=== PATIENT | male | born 1995 | race Caucasian/White ===

== ENCOUNTER 2021-08-23 16:06 | Emergency (ER) | payer BC, SELFPAY ==
[2021-08-23 16:08] VITALS: BP 126/83; PULSE 68; RESP 18; TEMP 36.6; O2SAT 100; BMI 27.3
--- NOTE | 2021-08-23 16:32 | [facility].EDGENADL ---
ED Disposition Clinical Impression: Encounter for medical assessment Disposition: Home, Self-Care Condition on Discharge: Good Additional Instructions: Your blood pressure here today has been normal as has your heart rate. Your EKG is normal today as well. Increase oral hydration and follow-up with your primary care to establish care and tracking of your blood pressures. If you feel the need you can take a daily journal of your blood pressures that should be checked in the morning and in the evening. If you have any severe dizziness chest pain palpitations or other worsening symptoms please return to the ER. - Critical Care Critical Care Time: No Attestation: On , the high probability of a clinically significant, sudden or life threatening deterioration of the following system(s) required my full and direct attention, intervention and personal management. The time I documented below is in addition to time spent performing reported procedures but includes the following listed in this critical care notation. Medical Decision Making - Medical Records Medical records reviewed: Yes: I reviewed the patient's medical records. - Florentino Inquiry Pt receiving controlled substance: No Vital Signs: 08/23/21 16:08 Temperature 97.8 F Temperature Source Oral Pulse Rate [Right Radial] 68 Respiratory Rate 18 Blood Pressure [Right Arm] 126/83 Blood Pressure Mean [Right Arm] 97 Blood Pressure Source [Right Arm] Automatic Cuff Blood Pressure Position [Right Arm] Sitting 02 Sat by Pulse Oximetry 100 Oxygen Delivery Method Room Air Orders (Tests/Meds): ORDERS Category Date Time Status EKG Request [ECG Request by /Ollie] Stat Y 08/23/21 16:48 Ordered General Adult HPI - General Stated complaint: Low BP Time Seen by Provider: 08/23/21 16:32 Mode of Arrival: Ambulatory Source of Information: Patient Limitations: No Limitations - History of Present Illness HPI narrative: 6-year-old male who presents because his grandparents checked his blood pressure and found it to be low. They try to troubleshoot machine but persistently read low. He was having no symptoms at that time no dizziness shortness of breath chest pain palpitations or weakness. After checking this blood pressure he drove from [place] back to [place] without issue. He does not get dizzy with standing. - Related Data Home Medications Medication Instructions Recorded Confirmed No Known Home Medications 06/08/19 06/08/19 Allergies Allergy/AdvReac Type Severity Reaction Status Date / Time Sulfa (Sulfonamide Allergy Verified 06/08/19 19:12 Antibiotics) [facility] History - Hepatitis A Screen Attestation statement:: This patient has been screened for Hepatitis A risk factors. ROS Obtained: Yes Systems reviewed as appropriate & no additional complaints Physical Exam - General General appearance: alert, in no apparent distress - Head Head exam: atraumatic, normocephalic - Eye Eye exam: Present: normal appearance - ENT ENT exam: Present: mucous membranes moist - Neck Neck exam: Present: trachea midline - Chest Chest inspection: Present: symmetric chest wall rise - Respiratory Respiratory exam: Present: normal lung sounds bilaterally. Absent: respiratory distress - Cardiovascular Cardiovascular exam: Present: regular rate, normal rhythm, normal heart sounds - Abdominal Exam Abdominal exam: Present: soft. Absent: distention - Extremities Exam Extremities exam: Present: normal inspection. Absent: pedal edema - Neurological Exam Neurological exam: Present: alert, oriented X3 - Psychiatric Psychiatric exam: Present: normal affect - Skin Skin exam: Present: warm, dry
--- NOTE | 2021-08-23 16:51 | ECG_ITS ---
APPROVED REPORT Exam: Resting ECG HR:68 bpm ECG Measurements Heart Rate 68 AXES UT 127 P 52 QRSd 102 QRS 44 QT 393 T 75 QTc 411 Conclusion SINUS RHYTHM WITH SINUS ARRHYTHMIA POSSIBLE RIGHT VENTRICULAR CONDUCTION DELAY [RSR (QR) IN V1/V2] BORDERLINE ECG UNCONFIRMED REPORT Electronically signed by : Theodore Hay MD 08/24/2021 20:17:06
[2021-08-23 17:00] VITALS: BP 108/70; PULSE 68; O2SAT 97
[2021-08-23 17:30] VITALS: BP 108/70; PULSE 70; RESP 18; TEMP 36.4; O2SAT 99
== END 2021-08-23 17:30 | disposition home or self-care (01) ==
PROVIDERS: Emergency Provider Emergency Medicine
DX: R03.1 Nonspecific low blood-pressure reading (principal)
CPT/HCPCS: 93005; 99282